=== PATIENT | male | born 1965 | race Caucasian/White ===

== ENCOUNTER → 2017-11-25 | Outpatient (CLI) | payer OTHER ==
[~2017-11-25] MED LIST: ADVAIR 250/501 DISK IH; COLCHICINE0.6 M1 PO; FISH OIL 1,0001 EA10 PO; FLAX OIL1000 MG PO; LASIX40 MG PO; ULORIC80 MG PO; ZYRTEC10 M3 PO
== END | disposition home or self-care (01) ==
LOC: CDC 11:57
DX: Z01.810 Encounter for preprocedural cardiovascular examination (principal); M79.621 Pain in right upper arm; S46.201A Unspecified injury of muscle, fascia and tendon of other parts of biceps, right arm, initial encounter; I45.10 Unspecified right bundle-branch block
CPT/HCPCS: 93000

== ENCOUNTER 2017-11-28 09:44 | Day surgery (SDC) | payer OTHER ==
[~2017-11-28] VITALS: Ht 177.8 cm; Wt 113.4 kg
[2017-11-28] MEDS ORDERED: UROXATRAL10 MG PO (10:14)
[2017-11-28 10:24] VITALS: BP 129/72
[2017-11-28 16:30] VITALS: BP 135/72
[2017-11-28 17:25] VITALS: BP 128/69
== END 2017-11-28 17:32 | disposition home or self-care (01) ==
LOC: SDC 09:44
PROC: 0LQ30ZZ Repair Right Upper Arm Tendon, Open Approach (ICD-10-PCS; principal; 2017-11-28)
DX: S46.211A Strain of muscle, fascia and tendon of other parts of biceps, right arm, initial encounter (principal); Z88.1 Allergy status to other antibiotic agents; G47.30 Sleep apnea, unspecified; X50.9XXA Other and unspecified overexertion or strenuous movements or postures, initial encounter; Z87.891 Personal history of nicotine dependence
CPT/HCPCS: J0131; J0690; J1100; J1170; J1885; J2250; J3010